=== PATIENT | female | born 1980 | race Caucasian/White ===

== ENCOUNTER 2017-10-07 00:50 | Inpatient (IN) | payer OTHER ==
[~2017-10-07] VITALS: Ht 157.5 cm; Wt 70.9 kg
[2017-10-07] VITALS (20 sets, daily range): BP systolic 88–144; BP diastolic 50–91; PULSE 84–141; TEMP 97.2–98.2
[~2017-10-07 00:50] MED LIST: MOTRIN 800800 MG/TAB PO; NEXIUM 20MG20 MG PO; PERCOCET 325 MG1 TA2 PO; PRENATAL1 TA1 PO; PRENATAL1 TA7 PO; SENOKOT S 50 MG1 TAB PO
[2017-10-07] MEDS ORDERED: WELLBUTRIN XL300 M1 PO (01:30)
[2017-10-07 01:38] LABS: BASO % 0.3 % (0.0-2.0); EOS # 0.1 (0.0-0.7); GRAN # 6.8 (1.4-6.5); GRAN % 61.3 % (42.2-75.2); HEMOGLOBIN 12.4 g/dl (12.5-16.0); LYMPH # 2.9 (1.2-3.4); MEAN CELL VOLUME 91 fl (80.0-100.0); MEAN CORPUSCULAR HEMOGLOBIN 32 pg (27.0-31.0); MEAN CORPUSCULAR HGB CONC 35 g/dl (33.0-37.0); MEAN PLATELET VOLUME 10.7 fl (7.4-10.4); MONO # 1.2 (0.1-0.6); MONO % 10.6 % (1.7-9.3); PLATELET COUNT 169 K/mm3 (130-400); RED BLOOD COUNT 3.92 M/mm3 (4.10-5.30); REDCELL DISTRIBUTION WIDTH-CV 12.5 % (11.5-14.5)
[2017-10-07 01:39] LABS: HEMATOCRIT 35.7 % (37.0-47.0)
[2017-10-08 07:43] VITALS: BP 124/84; PULSE 90; TEMP 97.6
[2017-10-08] MEDS ORDERED: PERCOCET 325 MG1 TA2 PO (07:48)
[2017-10-08] MEDS ORDERED: MOTRIN 800800 MG/TAB PO (07:48)
== END 2017-10-08 12:00 | disposition home or self-care (01) | DRG 775 ==
LOC: LDRO 00:50 → OB 01:00 → LDR 01:00 → OB 10:00
PROVIDERS: Obstetrics & Gynecology
PROC: 10E0XZZ Delivery of Products of Conception, External Approach (ICD-10-PCS; principal; 2017-10-07)
DX: O34.211 Maternal care for low transverse scar from previous cesarean delivery (principal); O99.344 Other mental disorders complicating childbirth; K21.9 Gastro-esophageal reflux disease without esophagitis; F32.9 Major depressive disorder, single episode, unspecified; O26.893 Other specified pregnancy related conditions, third trimester; Z3A.37 37 weeks gestation of pregnancy; Z37.0 Single live birth
CPT/HCPCS: J2405; J2590; J7120

== ENCOUNTER → 2022-03-26 | Outpatient (CLI) | payer OTHER ==
[~2022-03-26] MED LIST changes: +WELLBUTRIN XL300 M1 PO
== END ==
LOC: COL.RAD 12:45
DX: R19.09 Other intra-abdominal and pelvic swelling, mass and lump (principal)